=== PATIENT | female | born 1940 | race African-American/Black ===

== ENCOUNTER → 2020-01-30 11:17 | Outpatient (BNVA) | payer OTHER, SELFPAY | PROVIDERS: PCP Internal Medicine; Referring Provider Internal Medicine; Visit Provider Internal Medicine Cardiovascular Disease | DX: I10 Essential (primary) hypertension (principal); I35.0 Nonrheumatic aortic (valve) stenosis | CPT/HCPCS: 93005; 99202 ==

== ENCOUNTER → 2020-08-11 10:23 | Outpatient (BNVA) | payer OTHER, SELFPAY | PROVIDERS: PCP Internal Medicine; Visit Provider Internal Medicine Cardiovascular Disease | DX: R00.2 Palpitations (principal); I10 Essential (primary) hypertension; I35.0 Nonrheumatic aortic (valve) stenosis; Z79.899 Other long term (current) drug therapy | CPT/HCPCS: 99212 ==

== ENCOUNTER → 2020-08-22 09:07 | Outpatient (REF) | payer MEDICARE, SELFPAY ==
--- NOTE | 2020-08-22 12:30 | ECG_ITS ---
Hook-up date: 2020-08-22 09:16:00 Duration: 47:59:00 Test Indications: PALPITATIONS Medications: 480318 QRS complexes 37 Ventricular ectopics which represent <1 % of total QRS comp. 452 Supraventricular ectopics which represent <1 % of total QRS comp. * Paced QRS complexs which represent % of total QRS comp. VENTRICULAR ECTOPY 35 Isolated 0 Bigeminal Cycles 1 Couplets 0 Runs 0 Beats in Runs * Beats LONGEST at * BPM at :: -- * Beats FASTEST at * BPM at :: -- SUPRAVENTRICULAR ECTOPY 433 Isolated 7 Couplets 1 Runs 5 Beats in Runs 5 Beats LONGEST at 167 BPM at 01:39:16 2020-08-24 5 Beats FASTEST at 167 BPM at 01:39:16 2020-08-24 HEART RATES 60 MIN at 01:39:26 2020-08-23 72 AVG 105 MAX at 19:01:55 2020-08-22 LONGEST RR 1.1920 secs at 02:12:59 2020-08-23 S-T LEVELS Channel 1 - 128 mm at 09:16:00 2020-08-22 - 128 mm at 09:16:00 2020-08-22 Channel 2 - 128 mm at 09:16:00 2020-08-22 - 128 mm at 09:16:00 2020-08-22 Channel 3 - 128 mm at 02:83:51 -- - 128 mm at 02:83:51 Basic rhythm Normal sinus rhythm No long pause or profound bradycardia Occasional Premature atrial complexes One 5 beat run of SVT at 167 bpm No diary submitted Referred By: Torin Juarez Overread By: DREW ARCHULETA MD
== END ==
LOC: HO.CARD 09:07
PROVIDERS: PCP Internal Medicine; Visit Provider Internal Medicine Cardiovascular Disease
DX: R00.2 Palpitations (principal)
CPT/HCPCS: 93226

== ENCOUNTER → 2020-10-20 12:53 | Outpatient (BNVA) | payer MEDICARE, SELFPAY | PROVIDERS: PCP Internal Medicine; Visit Provider Internal Medicine Cardiovascular Disease | DX: R00.2 Palpitations (principal); I10 Essential (primary) hypertension; I35.0 Nonrheumatic aortic (valve) stenosis | CPT/HCPCS: 99212 ==

== ENCOUNTER 2020-10-31 20:40 | Emergency (ER) | payer MEDICARE, SELFPAY ==
--- NOTE | ~2020-10-31 | XR_ITS ---
EXAMINATION: XR RIBS, RIGHT CLINICAL INFORMATION: Fall. COMPARISON: None TECHNIQUE: Frontal view of chest 3 views of the right ribs were obtained. FINDINGS: Lungs are clear. No consolidation, pneumothorax, or pleural effusion. The cardiomediastinal silhouette and pulmonary vasculature are normal. No acute osseous abnormality. Ribs are intact. No fractures are identified. 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 XR/XR ribs RT min 3V w CXR1V IMPRESSION: Unremarkable examination.
--- NOTE | ~2020-10-31 | XR_ITS ---
EXAMINATION: XR HIP, RIGHT CLINICAL INFORMATION: Fall. COMPARISON: None TECHNIQUE: Frontal view of pelvis. Two views of the right hip. FINDINGS: No fracture. No dislocation. 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 There is joint narrowing and mild bone spurs of the superior lateral acetabula of both hips. There are heavy vascular calcifications of the femoral arteries. There is degenerative spondylosis of lower lumbar spine. Moderate amount of stool in visualized colonic bowel loops. No abnormally dilated bowel loop. XR/XR hip RT w PEL1V IMPRESSION: No acute abnormality of pelvis or hips.
[2020-10-31 21:14] VITALS: BP 138/73; BP 159/61; PULSE 67; PULSE 68; RESP 15; TEMP 36.9; O2SAT 100; O2SAT 99; BMI 24.5
[2020-10-31 23:02] VITALS: BP 177/70; PULSE 71; RESP 20; TEMP 37; O2SAT 100
[2020-11-01] VITALS: BP 156/87; PULSE 71; RESP 20; TEMP 37; O2SAT 100
--- NOTE | 2020-11-01 00:33 | ED_ITS ---
HPI - Fall General Chief Complaint: Fall Stated Complaint: fall shoulder pain Time Seen by Provider: 10/31/20 22:34 Source: patient Mode of arrival: ambulatory Limitations: no limitations History of Present Illness HPI Narrative: Patient apparently was going up on the skillet in the mole lost balance and started falling back and fell hitting hip to the side no head injury no loss of consciousness complaining of pain in right shoulder ribs and the pelvis able to ambulate otherwise Related Data Home Medications Medication Instructions Recorded Confirmed amlodipine 10 mg tablet 10 mg PO DAILY 01/30/20 10/20/20 aspirin 81 mg tablet,delayed 81 mg PO DAILY 01/30/20 10/20/20 release atorvastatin 40 mg tablet mg PO 01/30/20 10/20/20 dulaglutide 0.75 mg/0.5 mL mg SUBCUT 01/30/20 10/20/20 subcutaneous pen injector empagliflozin 10 mg tablet 10 mg PO DAILY 01/30/20 10/20/20 levothyroxine 125 mcg tablet 0 mcg PO 01/30/20 10/20/20 losartan 50 mg tablet 50 mg PO DAILY 01/30/20 10/20/20 omeprazole 40 mg capsule,delayed 40 mg PO DAILY 01/30/20 10/20/20 release Previous Rx's Medication Instructions Recorded carvedilol 3.125 mg tablet 3.125 mg PO Q12H #60 tab 10/20/20 Allergies Allergy/AdvReac Type Severity Reaction Status Date / Time No Known Allergies Allergy Verified 10/20/20 13:04 Review of Systems Review of Systems: Yes all other systems are reviewed and are negative COUNTS INCLUDE 234 BEDS AT THE [facility] Past Medical History Surgical History H/O: knee surgery History of breast biopsy History of cholecystectomy History of thyroid surgery Family History Family History Mother Diabetes HTN (hypertension) Stroke CVD (cardiovascular disease) Father No problems noted. Social History Social History Alcohol intake: never Patient Tobacco Use Status: Never used Tobacco Advance Directives: No Advance Directives Information Provided: No Physical Exam Vital Signs: Vital Signs: Last Vital Signs Temp 98.6 F 11/01/20 00:00 Pulse 71 11/01/20 00:00 Resp 20 11/01/20 00:00 BP 156/87 H 11/01/20 00:00 Pulse Ox 100 11/01/20 00:00 Body Mass Index 24.5 Appearance: Alert. Oriented X3. No acute distress. Eyes: PERRLA, No Nystagmus ENT: Pharynx normal. Oral Mucosa moist Neck: Normal inspection. Neck supple. CVS: Normal heart rate and rhythm. Pulses normal. Respiratory: No respiratory distress. Equal air entry bilateral, no wheezing/rales/rhonchi soft tissue tenderness the right mid ribs without any crepitus Abdomen: Soft and nontender. Bowel sounds are present, no mass palpable, no CVA tenderness Skin: Skin warm and dry. Normal skin color. Normal skin turgor. Extremities: No lower extremity edema. No calf tenderness soft tissue tenderness right iliac crest area .good hip movement Neuro: Oriented X 3. No motor deficit. No sensory deficit.No cerebellar signs , cranial nerves II-XII intact MDM - Fall MDM Narrative Medical decision making narrative: Patient x-ray of the pelvis and ribs are negative patient with minor injuries will discharge patient home for contusion Discharge Plan Discharge Clinical Impression: Contusion of hip Qualifiers: Encounter type: initial encounter Laterality: right Qualified Code(s): S70.01XA - Contusion of right hip, initial encounter Patient Disposition: Home, Self-Care Instructions: Hip Contusion (ED) Additional Instructions: Take Tylenol/ibuprofen for pain your x-rays negative for fracture Follow with PCP if any concerns Prescriptions: No Action Trulicity 0.75 mg/0.5 mL pen injector subcut RF: 0 Jardiance 10 mg tablet 10 mg PO DAILY RF: 0 levothyroxine 125 mcg tablet 0 mcg PO RF: 0 amlodipine 10 mg tablet 10 mg PO DAILY RF: 0 aspirin 81 mg tablet,delayed release (DR/EC) 81 mg PO DAILY RF: 0 omeprazole 40 mg capsule,delayed release(DR/EC) 40 mg PO DAILY RF: 0 atorvastatin 40 mg tablet PO RF: 0 losartan 50 mg tablet 50 mg PO DAILY RF: 0 carvedilol 3.125 mg tablet 3.125 mg PO Q12H Qty: 60 RF: 3 Interventions: ED Discharge Assessment Last Done: 11/01/20 01:28 Discharge Date/Time: 11/01/20 01:29 Print Language: Liberian
[2020-11-01] MEDS: traMADoL HCL 50 MG TABLET PO (01:25)
== END 2020-11-01 01:29 | disposition home or self-care (01) ==
PROVIDERS: Emergency Provider Internal Medicine
DX: S40.011A Contusion of right shoulder, initial encounter (principal); S70.01XA Contusion of right hip, initial encounter; M25.511 Pain in right shoulder; M25.551 Pain in right hip; R07.81 Pleurodynia; W01.0XXA Fall on same level from slipping, tripping and stumbling without subsequent striking against object, initial encounter; Y93.9 Activity, unspecified; Y92.9 Unspecified place or not applicable; Y99.9 Unspecified external cause status
CPT/HCPCS: 71101; 73502; 99283; 99284

== ENCOUNTER → 2021-01-14 12:35 | Outpatient (BNVA) | payer MEDICARE, SELFPAY | PROVIDERS: Visit Provider Internal Medicine Cardiovascular Disease | DX: I35.0 Nonrheumatic aortic (valve) stenosis (principal); I10 Essential (primary) hypertension | CPT/HCPCS: 99212 ==

== ENCOUNTER → 2021-03-25 10:55 | Outpatient (BNVA) | payer MEDICARE, SELFPAY | PROVIDERS: PCP Internal Medicine; Visit Provider Internal Medicine Cardiovascular Disease | DX: I10 Essential (primary) hypertension (principal) | CPT/HCPCS: 99212 ==

== ENCOUNTER 2021-04-22 13:45 | Outpatient (REF) | payer MEDICARE, SELFPAY ==
[2021-04-22 16:00] LABS: Anion Gap 13 (12-20); Blood Urea Nitrogen 31 mg/dL (9-16); Calcium 9.5 mg/dL (8.4-10.2); Carbon Dioxide 25 mmol/L (22-29); Chloride 103 mmol/L (96-108); Estimated Glomerular Filt Rate 23; Glucose Random 236 mg/dL (60-115); Potassium 4.1 mmol/L (3.3-5.1); Sodium 137 mmol/L (135-145)
== END 2021-04-22 13:46 | disposition home or self-care (01) ==
LOC: HO.LAB 13:45
PROVIDERS: Internal Medicine Cardiovascular Disease; PCP Internal Medicine; Visit Provider Nurse Practitioner Family
DX: I10 Essential (primary) hypertension (principal); I35.0 Nonrheumatic aortic (valve) stenosis
CPT/HCPCS: 36415; 80048; 99212

== ENCOUNTER 2021-08-20 02:29 | Emergency (ER) | payer OTHER, SELFPAY ==
--- NOTE | ~2021-08-20 | XR_ITS ---
EXAMINATION: XR CHEST CLINICAL INFORMATION: Chest pain. COMPARISON: None TECHNIQUE: Frontal view of the chest was obtained. FINDINGS: The cardiac silhouette is normal in size. Mild aortic calcific atherosclerosis. No effusions or pneumothoraces. Normal pattern of pulmonary vasculature. 3 closely approximated well-circumscribed rounded nodules measuring approximately 2 mm diameter projected over the right upper lung zone which making allowances for differences in imaging technique are unchanged compared with 10/31/2020. These findings may represent chronic calcified pulmonary granulomas. No focal pulmonary consolidation identified. Prominent superior projecting osteophytosis of the right acromioclavicular joint. XR/XR chest 1V IMPRESSION: *No acute cardiopulmonary abnormalities.
--- NOTE | 2021-08-20 02:35 | ECG_ITS ---
Test Reason : CP Blood Pressure : / mmHG Vent. Rate : 072 BPM Atrial Rate : 072 BPM P-R Int : 186 ms QRS Dur : 088 ms QT Int : 392 ms P-R-T Axes : 067 -27 069 degrees QTc Int : 429 ms Normal sinus rhythm Minimal voltage criteria for LVH, may be normal variant ( [place] product ) Borderline ECG No previous ECGs available Referred By: Generic ED Physician Electronically Signed By:DREW ARCHULETA MD
[2021-08-20 02:36] VITALS: BP 154/72; PULSE 72; RESP 24; O2SAT 99; BMI 22.4
[2021-08-20 02:47] LABS: MANUAL DIFF FLAG NO
[2021-08-20 02:49] LABS: Basophils Percent Auto 0.5 % (0-2); Eosinophils Absolute Auto 0.1 X10*3/uL (0.0-0.4); Eosinophils Percent Auto 0.9 % (0-4); Hematocrit 28.6 % (37.0-47.0); Hemoglobin 9.1 g/dl (12.0-16.0); Imm Gran Abs Auto 0.02 X10*3/uL (0.00-0.03); Imm Gran Pct Auto 0.2 % (0.0-0.4); Lymphocytes Absolute Auto 1.6 X10*3/uL (1.2-4.9); Lymphocytes Percent Auto 18.8 % (20-40); Mean Corpuscular HGB Conc 31.8 g/dl (31.0-35.0); Mean Corpuscular Hemoglobin 27.1 pg (27.0-33.0); Mean Corpuscular Volume 85.1 fL (80.0-98.0); Mean Platelet Volume 11.6 fL (9.4-12.3); Monocytes Absolute Auto 0.6 X10*3/uL (0.1-1.2); Monocytes Percent Auto 7.3 % (2-11); Neutrophils Absolute Auto 6.1 x10*3/uL (2.0-8.3); Neutrophils Percent Auto 72.3 % (45-73); Platelet Count 181 X10*3/uL (160-400); Red Blood Count 3.36 X10*6/uL (4.20-5.50); White Blood Count 8.5 X10*3/uL (4.8-10.8)
[2021-08-20 03:07] LABS: Anion Gap 13 (12-20); Blood Urea Nitrogen 28 mg/dL (9-16); Calcium 8.8 mg/dL (8.4-10.2); Carbon Dioxide 21 mmol/L (22-29); Chloride 106 mmol/L (96-108); Creatinine Clr Calc Pharmacy 22.6; Estimated Glomerular Filt Rate 27; Glucose Random 238 mg/dL (60-115); Potassium 4.1 mmol/L (3.3-5.1); Sodium 136 mmol/L (135-145); Troponin-I High Sensitivity 6.5 ng/L (<3.5-17.0)
--- NOTE | 2021-08-20 03:41 | ED_ITS ---
HPI - Chest Pain General Chief Complaint: Chest Pain Stated Complaint: cp Time Seen by Provider: 08/20/21 03:41 Source: patient and family ( Daughter and grandson) Mode of arrival: EMS Limitations: language barrier ( patient is Norwegian-speaking only, family members speaks Norwegian and [place], the park interpreter was used , patient relies on family to give information) History of Present Illness HPI narrative: 81-year-old female who presents emergency department for evaluation of chest pain. According to the daughter, the patient has been complaining of chest pain on and off for the past 3 days. the pain can come on at rest and with exertion. When the pain comes on the pain is often severe, constant and lasts minutes. Prior to coming to the emergency department the patient was in bed and started to complain of severe chest pain. The patient points to her anterior chest when asked to localize the pain. She states the pain is a heaviness. The pain did not radiate to her neck, jaw, arms or back. She did feel short of breath with the pain. The daughter states she had 2 episodes of pain yesterday as well. The daughter has been giving the patient Tylenol for the pain and this does seem to relieve the pain. The patient denied fever, chills, rhinorrhea, sore throat, cough, nausea, david rrhea. She did have 1 episode of vomiting yesterday according to the daughter. Related Data Home Medications Medication Instructions Recorded Confirmed amlodipine 10 mg tablet 10 mg PO DAILY 01/30/20 04/23/21 aspirin 81 mg tablet,delayed 81 mg PO DAILY 01/30/20 04/23/21 release dulaglutide 0.75 mg/0.5 mL mg subcut 01/30/20 04/23/21 subcutaneous pen injector empagliflozin 10 mg tablet 10 mg PO DAILY 01/30/20 04/23/21 omeprazole 40 mg capsule,delayed 40 mg PO DAILY 01/30/20 04/23/21 release atorvastatin 40 mg tablet mg PO DAILY 01/14/21 04/23/21 levothyroxine 125 mcg tablet 62.5 mcg PO DAILY 01/14/21 04/23/21 carvedilol 6.25 mg tablet 6.25 mg PO BID 04/24/21 Previous Rx's Medication Instructions Recorded losartan 100 mg tablet 100 mg PO DAILY #90 tabs 06/08/21 Allergies Allergy/AdvReac Type Severity Reaction Status Date / Time No Known Allergies Allergy Verified 08/20/21 02:43 Review of Systems Review of Systems: Yes all other systems are reviewed and are negative [facility] Past Medical History [facility] Narrative: past medical history: Hypertension, aortic stenosis, palpitations. Social history: Patient lives with her family, she denies tobacco, alcohol and drug use. Surgical History H/O: knee surgery History of breast biopsy History of cholecystectomy History of thyroid surgery Family History Family History Mother Diabetes HTN (hypertension) Stroke CVD (cardiovascular disease) Father No problems noted. Social History Social History Alcohol intake: never Patient Tobacco Use Status: Never used Tobacco Advance Directives: No Advance Directives Information Provided: Yes Physical Exam Vital Signs: Vital Signs: Last Vital Signs Pulse 77 08/20/21 06:11 Resp 16 08/20/21 06:11 BP 162/74 H 08/20/21 06:11 Pulse Ox 100 08/20/21 06:11 O2 Del Method 08/20/21 06:11 BMI result Body Mass Index 22.4 Const: General: cooperative and no acute distress Orientation/consciousness: oriented to person and oriented to place Limitations: no limitations HEENT: Head: Yes normal to inspection, Yes normocephalic and Yes atraumatic Ears: external ears normal General nose exam: Normal external nose present Face and sinus: Yes normal facial exam Mouth: Normal oral and palatal mucosa present Throat: Yes posterior oropharynx normal Eyes: General: appearance normal, both eyes and all related structures Pu pils: Equal, round and reactive pupils present Neck: Neck: Yes normal visual inspection, Yes no lymphadenopathy, Yes trachea midline and Yes supple Chest: Chest palpation & inspection: normal inspection of the chest and tenderness ( Moderate anterior chest wall tenderness) Resp: Effort & Inspection: normal respiratory effort and able to speak in complete sentences Auscultation: clear to auscultation bilaterally Cardio: Rate: regular rate Rhythm: regular rhythm Heart sounds: S1 normal heart sound present, S2 normal heart sound present and no murmurs GI: Inspection: Yes normal to inspection Palpation (GI): Soft to palpation, nontender and no guarding Auscultation: normal bowel sounds : General: Yes no CVA tenderness Back/Spine/Pelvis: Back: no CVA tenderness Skin: General skin exam: no rashes or lesions noted Neuro: General: oriented to person and oriented to place Cranial nerves: Yes CN's II-XII intact bilaterally and Yes Equal, round and reactive pupils present Cognition (Neuro): normal cognition Motor exam (neuro): 5/5 motor strength present throughout Extrem: General: Yes normal to inspection Psych: Appearance: grossly normal Speech and movement: Normal speech and movement present Affect: normal affect Attitude: cooperative Thought content: Normal thought content present Course Course Course Narrative: 81-year-old female who presents emergency department for evaluation of intermittent anterior chest pain. The patient has been having who 3 episodes per day over the past 3 days, these episodes last minutes and can be severe. The patient had an episode prior to coming to emergency department which was associated with shortness of breath. Patient's vital signs revealed an elevated blood pressure of 154/72 with an elevated respiratory rate of 24 and and O2 saturation of 99-100% on room air. patient's physical examination did reveal anterior chest wall tenderness otherwise was unremarkable. Patient's laboratory evaluation revealed mild anemia with an H&H of 9.3 and 28.6. BUN and creatinine were elevated 28 and 1.73. the patient's initial high sensitive troponin was 65, repeat 3 hour troponin was 66 which is not significantly changed. Patient's 12 EKG was consistent with the a incomplete right bundle-branch block. Chest x-ray was unremarkable. The patient did receive Zofran 4 mg IV and Toradol 15 mg IV with improvement of her pain. The patient was discharged home the care of her family, the family was advised to give the patient Tylenol for pain and to follow-up with PCP for re-evaluation. MDM - Chest Pain Medical Records Data Attestation: I reviewed the patient's medical records. Lab Data Attestation: I reviewed the patient's lab results. Result diagrams: 08/20/21 02:44 08/20/21 02:44 Labs: Lab Results 08/20/21 08/20/21 08/20/21 Range/Units 02:44 02:44 02:44 WBC 8.5 (4.8-10.8) X10*3/uL RBC 3.36 L (4.20-5.50) X10*6/uL Hgb 9.1 L (12.0-16.0) g/dl Hct 28.6 L (37.0-47.0) % MCV 85.1 (80.0-98.0) fL MCH 27.1 (27.0-33.0) pg MCHC 31.8 (31.0-35.0) g/dl RDW 16.0 (11.0-16.0) % Plt Count 181 (160-400) X10*3/uL MPV 11.6 (9.4-12.3) fL Immature Gran % (Auto) 0.2 (0.0-0.4) % Neut % (Auto) 72.3 (45-73) % Lymph % (Auto) 18.8 L (20-40) % Mccreary % (Auto) 7.3 (2-11) % Eos % (Auto) 0.9 (0-4) % Baso % (Auto) 0.5 (0-2) % Lymph # (Auto) 1.6 (1.2-4.9) X10*3/uL Mccreary # (Auto) 0.6 (0.1-1.2) X10*3/uL Eos # (Auto) 0.1 (0.0-0.4) X10*3/uL Baso # (Auto) 0.0 (0.0-0.2) X10*3/uL Abs Immat Gran (auto) 0.02 (0.00-0.03) X10*3/uL Absolute Neuts (auto) 6.1 (2.0-8.3) x10*3/uL Absolute Nucleated RBC 0.000 (0.0-0.012) X10*3/uL Nucleated RBC % (auto) 0.0 (0.0-0.2) /100WBC Sodium 136 (135-145) mmol/L Potassium 4.1 (3.3-5.1) mmol/L Chloride 106 (96-108) mmol/L Carbon Dioxide 21 L (22-29) mmol/L Anion Gap 13 (12-20) BUN 28 H (9-16) mg/dL Creatinine 1.78 H (0.5-1.4) mg/dL Estim Creat Clear Calc 22.6 Estimated GFR 27 Random Glucose 238 H (60-115) mg/dL Calcium 8.8 D (8.4-10.2) mg/dL Troponin I High Sens 6.5 (<3.5-17.0) ng/L 08/20/21 Range/Units 04:43 WBC (4.8-10.8) X10*3/uL RBC (4.20-5.50) X10*6/uL Hgb (12.0-16.0) g/dl Hct (37.0-47.0) % MCV (80.0-98.0) fL MCH (27.0-33.0) pg MCHC (31.0-35.0) g/dl RDW (11.0-16.0) % Plt Count (160-400) X10*3/uL MPV (9.4-12.3) fL Immature Gran % (Auto) (0.0-0.4) % Neut % (Auto) (45-73) % Lymph % (Auto) (20-40) % Mccreary % (Auto) (2-11) % Eos % (Auto) (0-4) % Baso % (Auto) (0-2) % Lymph # (Auto) (1.2-4.9) X10*3/uL Mccreary # (Auto) (0.1-1.2) X10*3/uL Eos # (Auto) (0.0-0.4) X10*3/uL Baso # (Auto) (0.0-0.2) X10*3/uL Abs Immat Gran (auto) (0.00-0.03) X10*3/uL Absolute Neuts (auto) (2.0-8.3) x10*3/uL Absolute Nucleated RBC (0.0-0.012) X10*3/uL Nucleated RBC % (auto) (0.0-0.2) /100WBC Sodium (135-145) mmol/L Potassium (3.3-5.1) mmol/L Chloride (96-108) mmol/L Carbon Dioxide (22-29) mmol/L Anion Gap (12-20) BUN (9-16) mg/dL Creatinine (0.5-1.4) mg/dL Estim Creat Clear Calc Estimated GFR Random Glucose (60-115) mg/dL Calcium (8.4-10.2) mg/dL Troponin I High Sens 6.6 (<3.5-17.0) ng/L ECG Data ECG #1: Interpretation: 0155: Normal sinus rhythm rate of 75, normal UT interval, prolonged QRS duration of 112 milliseconds, prolonged QTC of 477 milliseconds, Q-wave lead 3, inverted T-waves V1, V2 and V3, incomplete right bundle-branch block. Discharge Plan Discharge Clinical Impression: Chest pain Patient Disposition: Home, Self-Care Instructions: Chest Wall Pain (ED) Additional Instructions: Your chest x-ray was normal. Your blood work was unremarkable which is reassuring. Your EKG was unremarkable. At this time, I believe that your pain is caused by muscle and joint pain of your chest wall. Take Tylenol (acetaminophen) 500 mg pills, 2 pills every 4 to 6 hours as needed for pain. Follow-up with your doctor in 2 days. Please return to the emergency department if your symptoms get worse or if you develop any symptoms that are concerning to you. Prescriptions: No Action carvedilol 6.25 mg tablet 6.25 mg PO BID Rx Instructions: must administer with a meal/food losartan 100 mg tablet 100 mg PO DAILY Qty: 90 3RF Trulicity 0.75 mg/0.5 mL pen injector subcut Jardiance 10 mg tablet 10 mg PO DAILY amlodipine 10 mg tablet 10 mg PO DAILY aspirin 81 mg tablet,delayed release (DR/EC) 81 mg PO DAILY omeprazole 40 mg capsule,delayed release(DR/EC) 40 mg PO DAILY levothyroxine 125 mcg tablet 62.5 mcg PO DAILY atorvastatin 40 mg tablet PO DAILY
[2021-08-20 04:04] VITALS: BP 167/68; PULSE 71; RESP 18; O2SAT 100
[2021-08-20] MEDS: Ketorolac Tromethamine 15 MG/ML VIAL IVPUSH (04:28)
[2021-08-20] MEDS: ondansetron HCL 4 MG/2 ML VIAL IVPUSH (04:29)
[2021-08-20 05:09] LABS: Troponin-I High Sensitivity 6.6 ng/L (<3.5-17.0)
[2021-08-20 06:11] VITALS: BP 162/74; PULSE 77; RESP 16; O2SAT 100
== END 2021-08-20 08:04 | disposition home or self-care (01) ==
PROVIDERS: Emergency Provider Emergency Medicine Emergency Medical Services
DX: R07.9 Chest pain, unspecified (principal); I10 Essential (primary) hypertension; D64.9 Anemia, unspecified
CPT/HCPCS: 36415; 71045; 80048; 84484; 85025; 93005; 96374; 96375; 99284; J1885; J2405